=== PATIENT | female | born 1965 | race Caucasian/White ===

== ENCOUNTER 2024-04-05 12:00 | Inpatient (IN) | payer BC ==
[2024-04-05] VITALS (10 sets, daily range): BP systolic 105–126; BP diastolic 50–79; PULSE 84–94; TEMP 97.5–99.9
[~2024-04-05] VITALS: Ht 170.2 cm; Wt 148.2 kg
[2024-04-05] MEDS ORDERED: Ketorolac 15 MG/ML VIAL IV SCH (12:24)
[2024-04-05] MEDS ORDERED: cefTRIAXone 1 G in Water For Injection,Sterile 10 ML IV ONE (12:30)
[2024-04-05] MEDS ORDERED: Ondansetron 4 MG/2 ML VIAL IV PRN ×3 (12:30→19:45)
[2024-04-05] MEDS ORDERED: NS 1,000 ML IV SCH (12:30)
[2024-04-05] MEDS ORDERED: Morphine 4 MG/ML VIAL IV PRN (12:30)
[2024-04-05] MEDS ORDERED: WELLBUTRIN SR150 M1 PO (13:10)
[2024-04-05] MEDS ORDERED: VRAYLAR1.5 MG PO (13:10)
[2024-04-05] MEDS ORDERED: CELEXA40 MG PO (13:11)
[2024-04-05] MEDS ORDERED: KLOR-CON SPRIN10 MEQ PO (13:11)
[2024-04-05] MEDS ORDERED: SINGULAIR 110 MG/TAB PO (13:12)
[2024-04-05] MEDS ORDERED: PROTONIX 40MG T40 MG PO (13:12)
[2024-04-05] MEDS ORDERED: HCTZ 25MG TAB25 MG PO (13:13)
[2024-04-05] MEDS ORDERED: OZEMPIC0.25 MG/02 SQ (13:13)
[2024-04-05] MEDS ORDERED: COZAAR 50MG50 MG/TAB PO (13:14)
[2024-04-05] MEDS ORDERED: ZYRTEC 10MG10 MG PO (13:15)
[2024-04-05] MEDS ORDERED: PROAIR HFA0.09 MG/AC IH (13:15)
--- NOTE | 2024-04-05 14:06 | NUR ---
Initial visit; Patient thanked Construction Tech for looking in on her and asking her how she is doing. Padma says she is doing ok and really has no spiritual requests but would like to be in Construction Tech's prayers for healing.
--- NOTE | 2024-04-05 14:52 | NUR ---
SW met with patient to complete initial assessment for discharge planning. Patient verified she lives alone in [place], sees ANNA Garcia as her PCP and uses [facility]. Patient uses a CPAP and bed rail to assist with turning in bed. Patient lists her daughter January Shilo ([phone]) as her DPOA and states her DPOA paperwork and Living Will are on file at [facility]. Patient reports being independent with ADLs and plans to return home at discharge. Left message for Ronel in Medical Records at [facility] to request copy of Advaned Directives. Discharge Plan: Home
--- NOTE | 2024-04-05 15:47 | NUR ---
SW received call from Medical Records at [facility]. She stated that she does not find a copy of Advanced Directives on file for patient. SW called patient's daughter January ([phone]) to inquire if she may have a copy of Advanced Directives due to being named as patient's DPOA. She states she lives out of state and does not have a copy. She is visiting patient at this time and states that patient has copy of AD in a safe at her home. Daughter encouraged to bring copy to hospital for patient's chart if she is able to locate it. Daughter agreeable. Discharge Plan: Home
[2024-04-05] MEDS ORDERED: B COMPLEX #11 TA1 PO (16:11)
[2024-04-05] MEDS ORDERED: Lidocaine PF 2% (20 MG/ML) 5 ML VIAL ONE (16:19)
[2024-04-05] MEDS ORDERED: Succinylcholine PF 200 MG/10 ML SYRINGE IV ONE (16:19)
[2024-04-05] MEDS ORDERED: fentaNYL 50 MCG/ML 2 ML VIAL ONE (16:19)
--- NOTE | 2024-04-05 16:45 | NUR ---
Pt. to OR at this time.
[2024-04-05] MEDS ORDERED: Iohexol 300 - 10 ML VIAL URETER -L ONE (17:16)
[2024-04-05] MEDS ORDERED: Lidocaine 2% (20 MG/ML) 20 ML UROJET UR ONE (17:43)
[2024-04-05] MEDS ORDERED: dexAMETHasone 10 MG/ML VIAL ONE (17:57)
[2024-04-05] MEDS ORDERED: Ondansetron 4 MG/2 ML VIAL ONE (17:57)
[2024-04-05] MEDS ORDERED: NS 10 ML IV ONE (17:57)
[2024-04-05] MEDS ORDERED: Cetirizine 10 MG TAB PO PRN (18:00)
[2024-04-05] MEDS ORDERED: HYDROmorphone 1 MG/1 ML SYRINGE [PACU/SDC ONLY] IV PRN (18:30)
[2024-04-05] MEDS ORDERED: Albuterol 0.042% Neb Soln 1.25 MG/3 ML UD IH PRN (18:30)
[2024-04-05] MEDS ORDERED: fentaNYL 50 MCG/ML 1 ML SYRINGE/VIAL [PACU/SDC ONLY] IV PRN (18:30)
--- NOTE | 2024-04-05 18:43 | NUR ---
Pt. to the floor from PACU. Pt. is A&OX3, assessment wnl. Pt. denies pain. Call light within reach.
[2024-04-05] MEDS ORDERED: Montelukast 10 MG TAB PO SCH (21:00)
--- NOTE | 2024-04-05 21:56 | NUR ---
PATIENT ALERT AND ORIENTED X4. VSS. PATIENT HERE FOR CYSTO, RPG, LEFT STENT PLACEMENT. PATIENT DENIES ANY PAIN AT THIS TIME. PATIENT TOLERATING PO, VOIDING AND SITTING IN BED EATING DINNER. IV TO RIGHT FA WITH POST OP FLUIDS FINISHING. PM MEDS ADMINISTERED. NO FURTHER NEEDS. CALL LIGHT IN REACH.
[2024-04-06] VITALS (17 sets, daily range): BP systolic 95–127; BP diastolic 36–69; PULSE 66–106; TEMP 98.2–102.8
[2024-04-06] MEDS ORDERED: Dextrose (Glucose) 15 GM (4 x 3.75 GM) Chewable TABLET PACK PO PRN (09:00)
[2024-04-06] MEDS ORDERED: Dextrose 50% Water 25 GM/50 ML SYRINGE IV PRN (09:00)
[2024-04-06] MEDS ORDERED: buPROPion SR (12-HR) 150 MG TAB PO SCH (09:00)
[2024-04-06] MEDS ORDERED: cefTRIAXone 2 G in Water For Injection,Sterile 20 ML IV SCH (09:00)
[2024-04-06] MEDS ORDERED: Glucagon 1 MG VIAL IM PRN (09:00)
[2024-04-06] MEDS ORDERED: Insulin Lispro (HumaLOG) SQ SCH (09:00)
[2024-04-06] MEDS ORDERED: Citalopram 20 MG TAB PO SCH (09:00)
[2024-04-06] MEDS ORDERED: hydroCHLOROthiazide 25 MG TAB PO SCH (09:00)
[2024-04-06] MEDS ORDERED: Losartan 50 MG TAB PO SCH (09:00)
--- NOTE | 2024-04-06 09:41 | NUR ---
PT RESTING IN BED, ALERT AND ORIENTEDX4. RATES PAIN 3/10. GAVE PAIN PILL. PT RATED PAIN 0/10 AFTER PAIN PILL. ASSESSED AND GAVE MORNING MEDS. PT BLOOD SUGAR WAS [address] HOWELL AND LET HIM KNOW. GOT INSULIN ORDERS. DR AVILES SAID "IF BLOOD SUGAR IS OKAY AT THE NEXT CHECK SHE CAN GO HOME". NO OTHER COMPLAINS AT THIS TIME FROM PT. CALL LIGHT WITHIN REACH.
--- NOTE | 2024-04-06 13:21 | NUR ---
PT BLOOD SUGAR AT [address] AVILES TO SEE IF HE WAS OKAY WITH HER GOING HOME. ALSO NOTIFIED HIM OF TEMP OF 100.0. HE SAID TO GIVE PT NOON DOSE OF INSULIN AND IF HER BLOOD SUGAR GETS DOWN TO 250 SHE CAN GO HOME. ALSO GOT ORDERS TO CALL PT PHARMACY AND CALL IN ANTIBIOTIC FOR PT.
--- NOTE | 2024-04-06 18:12 | NUR ---
PT 1630 BLOOD SUGAR WAS 309. [address] STAPLES TO SEE IF HE STILL WANTED TO SEND PT HOME OR CONSULT HOSPITALIST. HE DID NOT ANSWER. LEFT VOICEMAIL AT 1630. LEFT NAME AND NUMBER. HAVE NOT GOT A CALL BACK YET.
--- NOTE | 2024-04-06 18:45 | NUR ---
REPORT RECEIVED FROM JESSICA CORCORAN. REPORTED THAT PATIENT'S BLOOD GLUCOSE LEVELS HAD NOT BEEN STABILIZED DESPITE INSULIN ADMINISTRATION. RN HAD NOT RECEIVED CALL BACK FROM DR STAPLES FOR NEW ORDERS OR TO OBTAIN A HOSPITALIST CONSULT.
--- NOTE | 2024-04-06 19:00 | NUR ---
THIS NURSE RECEIVED CALL FROM DR STAPLES. THIS NURSE NOTIFIED HIM THAT PATIENT'S BLOOD GLUCOSE LEVELS STILL REMAINED ELEVATED. PATIENT WAS AFEBRILE AT THIS TIME.
--- NOTE | 2024-04-06 19:20 | NUR ---
THIS NURSE CALLED ANNA PERALTA FOR HOSPITALIST CONSULT. AWAITING NEW ORDERS
--- NOTE | 2024-04-06 19:45 | NUR ---
PATIENT ALERT AND ORIENTED. APPEARS TO BE DYSPNEIC AT REST. VS WERE FOLLOWS BP 111/36, PULSE 98, RR 20, SPO2 92% ON RA, AND TEMP 102.2. PATIENT APPEARS DIAPHORETIC AND IS WARM TO THE TOUCH. PATIENT ALSO HAD INCONTINENT EPISODE. FABIAN CASTILLO AT BEDSIDE. SEE NEW ORDERS
[2024-04-06] MEDS ORDERED: NS 1,000 ML IV ONE (20:00)
[2024-04-06] MEDS ORDERED: NS 1,000 ML IV SCH (20:00)
--- NOTE | 2024-04-06 20:00 | NUR ---
CALLED LAB FOR STAT LABS.
[2024-04-06 20:49] LABS: ARTERIAL BLD GAS O2 SATURATION 98.5 % (92-100); ARTERIAL BLD GAS TCO2 CT 21.2; ARTERIAL BLOOD GAS BASE EXCESS -0.1 (-2-2); ARTERIAL BLOOD GAS HCO3 20.4 meq/L (22-26); ARTERIAL BLOOD GAS PO2 102.6 mmHg (80-100); ARTERIAL BLOOD GAS pH 7.55 (7.35-7.45)
[2024-04-06 20:50] LABS: ARTERIAL BLOOD GAS PCO2 23.9 mmHg (35-45)
[2024-04-06 20:54] LABS: BASO % 0.4 % (0.0-2.0); GRAN # 7.8 K/mm3 (1.4-6.5); GRAN % 82.4 % (42.2-75.2); HEMATOCRIT 39.2 % (37.0-47.0); HEMOGLOBIN 13.4 g/dl (12.5-16.0); LYMPH # 0.7 K/mm3 (1.2-3.4); LYMPH % 7.1 % (20.0-51.0); MEAN CELL VOLUME 83 fl (80.0-100.0); MEAN CORPUSCULAR HEMOGLOBIN 28 pg (27-31); MEAN CORPUSCULAR HGB CONC 34 g/dl (33.0-37.0); MEAN PLATELET VOLUME 10.4 fl (7.4-10.4); MONO # 0.9 K/mm3 (0.1-0.6); MONO % 9.4 % (1.7-9.3); PLATELET COUNT 125 K/mm3 (130-400); RED BLOOD COUNT 4.74 M/mm3 (4.10-5.30); REDCELL DISTRIBUTION WIDTH-CV 14.2 % (11.5-14.5)
[2024-04-06 21:00] LABS: ACETONE,SERUM NEGATIVE
[2024-04-06] MEDS ORDERED: Acetaminophen 325 MG TAB PO PRN (21:00)
[2024-04-06 21:09] LABS: ALANINE AMINOTRANSFERASE 30 U/L (0-55); ALBUMIN 2.9 g/dL (3.4-4.8); ALKALINE PHOSPHATASE 64 U/L (40-150); ANION GAP 10 mmol/L (7-16); AST,SGOT 20 U/L (5-34); BILIRUBIN,TOTAL 0.7 mg/dL (0.2-1.2); CALCIUM 9.3 mg/dL (8.4-10.2); CHLORIDE 98 mEq/L (98-107); CREATININE, serum 1.42 mg/dL (0.57-1.11); GLUCOSE 350 mg/dL (70-99); POTASSIUM 4.3 mEq/L (3.5-4.5); SODIUM 130 mEq/L (136-145); TOTAL PROTEIN 6.5 g/dl (6.2-8.1)
[2024-04-06 21:16] LABS: BLOOD UREA NITROGEN 17 mg/dL (10-20)
[2024-04-06 22:11] LABS: COLLECTION METHOD CLEAN CATCH
[2024-04-06] MEDS ORDERED: Ibuprofen 400 MG TAB PO ONE (22:15)
[2024-04-06 22:28] LABS: PH 5.5 (5.0-8.5); URINE APPEARANCE CLOUDY (CLEAR/HAZY); URINE BLOOD 3+ (NEGATIVE); URINE COLOR Dark Yellow (YELLOW); URINE GLUCOSE 3+ (NEGATIVE); URINE KETONE 1+ (NEGATIVE); URINE NITRATE NEGATIVE (NEGATIVE); URINE PROTEIN(semi-quant) 2+ (NEGATIVE)
[2024-04-06] MEDS ORDERED: Insulin Glargine-ygfn (Lantus) SQ SCH (22:30)
[2024-04-06 22:47] LABS: URINE BACTERIA MODERATE /hpf (NONE SEEN); URINE RBC >50 /hpf (0-2); URINE WBC 20-50 /hpf (0-2)
[2024-04-07] VITALS (23 sets, daily range): BP systolic 96–131; BP diastolic 49–86; PULSE 76–93; TEMP 97.3–99
[2024-04-07] MEDS ORDERED: Insulin Lispro (HumaLOG) SQ SCH
--- NOTE | 2024-04-07 02:32 | NUR ---
PATIENT RESTING IN BED. ALERT AND ORIENTED. DAUGHTER AT BESIDE. VSS. IV FLUIDS INFUSING PER MAR. PATIENT IS AFEBRILE, AND APPEARS MORE COMFORTABLE. CPAP IN PLACE. THIS NURSE ASSISTED PATIENT WITH AMBULATING TO RESTROOM. STEADY GAIT. PATIENT BACK TO BED. DENIES PAIN OR DISCOMFORT. CALL LIGHT WITHIN REACH.
[2024-04-07 06:37] LABS: BASO % 0.5 % (0.0-2.0); EOS % 0.1 % (0.0-4.0); GRAN % 80.6 % (42.2-75.2); HEMATOCRIT 38.8 % (37.0-47.0); LYMPH # 0.7 K/mm3 (1.2-3.4); LYMPH % 9.4 % (20.0-51.0); MEAN CELL VOLUME 84 fl (80.0-100.0); MEAN CORPUSCULAR HEMOGLOBIN 28 pg (27-31); MEAN CORPUSCULAR HGB CONC 34 g/dl (33.0-37.0); MEAN PLATELET VOLUME 10.1 fl (7.4-10.4); MONO # 0.6 K/mm3 (0.1-0.6); MONO % 8.3 % (1.7-9.3); PLATELET COUNT 112 K/mm3 (130-400); RED BLOOD COUNT 4.62 M/mm3 (4.10-5.30); REDCELL DISTRIBUTION WIDTH-CV 14.4 % (11.5-14.5)
[2024-04-07 06:56] LABS: ALBUMIN 2.6 g/dL (3.4-4.8); BILIRUBIN,TOTAL 0.5 mg/dL (0.2-1.2); CREATININE, serum 1.06 mg/dL (0.57-1.11); POTASSIUM 3.5 mEq/L (3.5-4.5)
[2024-04-07] MEDS ORDERED: Insulin Glargine-ygfn (Lantus) SQ ONE (11:30)
--- NOTE | 2024-04-07 12:22 | NUR ---
PT HAS BEEN RESTING IN BED, ALERT AND ORIENTEDX4. PT HAS HAD NAUSEA AND VOMIITING THIS MORNING. GAVE ZOFRAN. TEMPS HAVE BEEN AFIBRILE. RATES ABDOMINAL PAIN 3/10 AND ALSO COMPLAINS OF HEADACHE. OTHER VITALS HAVE BEEN STABLE. ASSESSED AND GAVE MORNING MEDS. NO OTHER COMPLAINTS AT THIS TIME. CALL LIGHT WITHIN REACH.
[2024-04-07] MEDS ORDERED: Insulin Lispro (HumaLOG) SQ ONE (16:45)
[2024-04-07] MEDS ORDERED: NS & 40 mEq KCl 1,000 ML IV SCH (17:00)
--- NOTE | 2024-04-07 20:00 | NUR ---
Assessment complete. A&Ox3. Denies shortness of breath. Rating pain 4/10-c/o headache. Has already received tylenol-requested norco-given at this time. Also c/o nausea-zofran was given already. NS with 20KCL infusing to right forearm without difficulty. Daughter is at bedside. Plan of care discussed for this shift to include meds/pain control/blood sugars/calling for questions/concerns. Verbalizes understanding. Call light in reach. Will monitor.
[2024-04-07] MEDS ORDERED: Insulin Glargine-ygfn (Lantus) SQ SCH (21:00)
--- NOTE | 2024-04-07 21:00 | NUR ---
Patient states headache is better. States the nausea has passed. Denies current questions/concerns. Will monitor.
[2024-04-08] VITALS (11 sets, daily range): BP systolic 103–130; BP diastolic 48–77; PULSE 70–82; TEMP 97.4–98.9
[2024-04-08 07:07] LABS: ALBUMIN 2.4 g/dL (3.4-4.8); BILIRUBIN,TOTAL 0.5 mg/dL (0.2-1.2); CALCIUM 7.9 mg/dL (8.4-10.2); CREATININE, serum 0.8 mg/dL (0.57-1.11); POTASSIUM 3.8 mEq/L (3.5-4.5); TOTAL PROTEIN 5.8 g/dl (6.2-8.1)
[2024-04-08 07:35] LABS: BASO % 0.3 % (0.0-2.0); EOS # 0.1 K/mm3 (0.0-0.7); EOS % 0.9 % (0.0-4.0); GRAN # 4.1 K/mm3 (1.4-6.5); GRAN % 70.8 % (42.2-75.2); HEMATOCRIT 37.5 % (37.0-47.0); HEMOGLOBIN 12.6 g/dl (12.5-16.0); LYMPH # 0.9 K/mm3 (1.2-3.4); LYMPH % 14.8 % (20.0-51.0); MEAN CELL VOLUME 83 fl (80.0-100.0); MEAN CORPUSCULAR HEMOGLOBIN 28 pg (27-31); MEAN CORPUSCULAR HGB CONC 34 g/dl (33.0-37.0); MEAN PLATELET VOLUME 10.7 fl (7.4-10.4); MONO # 0.7 K/mm3 (0.1-0.6); MONO % 12.5 % (1.7-9.3); PLATELET COUNT 72 K/mm3 (130-400); RED BLOOD COUNT 4.52 M/mm3 (4.10-5.30); REDCELL DISTRIBUTION WIDTH-CV 14.2 % (11.5-14.5)
--- NOTE | 2024-04-08 08:00 | NUR ---
PATIENT IS ORIENTED BUT DROWSY. PATIENT HAS BEEN C/O WELLS WITH SOME NAUSEA, NO EMESIS, SINCE SURGERY. GAVE PRN IV ZOFRAN & TYLENOL WITH AM MEDS. AM BS WAS 215. PATIENT'S A1C WAS OVER 11 AND PATIENT DISPLAYS SOME SYMPTOMS OF HYPOGLYCEMIA IN THE LOW 200'S. ADA DIET ORDERED. IV FLUIDS INFUSING VIA PUMP INTO RIGHT FORARM IV. HEAD TO TOE ASSESSMENT COMPLETE. SCD'S TO BLE. NO OTHER NEEDS AT THIS TIME. CALL LIGHT IN REACH.
[2024-04-08] MEDS ORDERED: Insulin Glargine-ygfn (Lantus) SQ ONE (11:30)
[2024-04-08] MEDS ORDERED: Ketorolac 15 MG/ML VIAL IV SCH (11:30)
--- NOTE | 2024-04-08 11:45 | NUR ---
PATIENT STILL C/O WELLS, SEE NEW ORDERS FROM HOSPITALIST.
[2024-04-08] MEDS ORDERED: Meropenem 500 MG in Water For Injection,Sterile 10 ML IV SCH (18:15)
--- NOTE | 2024-04-08 20:00 | NUR ---
Assessment complete. A&Ox3. Denies nausea/shortness of breath. C/O headache-tylenol given per dr order. VS have remained stable-afebrile. NS with 40meq @100ml/hr infusing without difficulty. Blood sugars Q4H. Currently on contact for ESBL in urine. Plan of care discussed for this shift to include meds/pain control/calling for questions/concerns. Call light in reach. Will monitor.
[2024-04-08] MEDS ORDERED: Insulin Glargine-ygfn (Lantus) SQ SCH (21:00)
[2024-04-09] VITALS (13 sets, daily range): BP systolic 119–130; BP diastolic 47–77; PULSE 73–86; TEMP 97.7–98.6
--- NOTE | 2024-04-09 06:07 | NUR ---
Patient had an uneventful night. VS remained stable. Afebrile. INT to right AC flushes without difficulty-NS with 40 KCL infusing without difficulty. Received tylenol over night for headache. Has used bedside commode due to not being able to make it to the bathroom without incontinence. Stsates she is feeling better today. Denies current needs. Call light in reach. Will monitor.
[2024-04-09 06:50] LABS: BASO % 0.4 % (0.0-2.0); EOS # 0.1 K/mm3 (0.0-0.7); EOS % 1.8 % (0.0-4.0); GRAN # 4.8 K/mm3 (1.4-6.5); HEMATOCRIT 38.4 % (37.0-47.0); HEMOGLOBIN 12.7 g/dl (12.5-16.0); LYMPH # 1.2 K/mm3 (1.2-3.4); LYMPH % 17.5 % (20.0-51.0); MEAN CELL VOLUME 84 fl (80.0-100.0); MEAN CORPUSCULAR HEMOGLOBIN 28 pg (27-31); MEAN CORPUSCULAR HGB CONC 33 g/dl (33.0-37.0); MONO # 0.8 K/mm3 (0.1-0.6); MONO % 11.4 % (1.7-9.3); PLATELET COUNT 71 K/mm3 (130-400); RED BLOOD COUNT 4.58 M/mm3 (4.10-5.30); REDCELL DISTRIBUTION WIDTH-CV 14.2 % (11.5-14.5)
--- NOTE | 2024-04-09 07:16 | NUR ---
Bedside report received from JEWELL Barker. Pt resting in bed with no complaints. Call light within reach.
[2024-04-09 07:44] LABS: ALBUMIN 2.3 g/dL (3.4-4.8); BILIRUBIN,TOTAL 0.4 mg/dL (0.2-1.2); CALCIUM 8.7 mg/dL (8.4-10.2); CREATININE, serum 0.75 mg/dL (0.57-1.11); POTASSIUM 3.9 mEq/L (3.5-4.5); TOTAL PROTEIN 5.8 g/dl (6.2-8.1)
--- NOTE | 2024-04-09 08:38 | NUR ---
Pt awake in recliner eating breakfast. Shift assessment completed. Pt A&O x4. Pt has complaints of pain in lower back rating 3/10. IVF infusing into LAC with no complications. Pt has no other request at this time. Contact precautions in place. Call light within reach.
[2024-04-09] MEDS ORDERED: Insulin Glargine-ygfn (Lantus) SQ ONE (09:30)
[2024-04-09] MEDS ORDERED: Insulin Lispro (HumaLOG) SQ SCH ×2 (12:00→17:00)
--- NOTE | 2024-04-09 13:54 | NUR ---
Pt completed shower independently with no complications.
[2024-04-09 14:26] LABS: COLLECTION METHOD CLEAN CATCH
[2024-04-09 14:39] LABS: PH 5.5 (5.0-8.5); URINE APPEARANCE CLEAR (CLEAR/HAZY); URINE BLOOD 2+ (NEGATIVE); URINE COLOR YELLOW (YELLOW); URINE GLUCOSE 2+ (NEGATIVE); URINE KETONE 1+ (NEGATIVE); URINE NITRATE NEGATIVE (NEGATIVE); URINE PROTEIN(semi-quant) NEGATIVE (NEGATIVE)
[2024-04-09] MEDS ORDERED: Insulin Glargine-ygfn (Lantus) SQ SCH (21:00)
--- NOTE | 2024-04-09 21:39 | NUR ---
Patient assessed at this time, see shift assessment, sitting up on a chair watching tv, reports back pain, tylenol given per request, still with INT to right antecubital, denies further needs, call light and personal items within reach, will continue to monitor.
[2024-04-10] VITALS (13 sets, daily range): BP systolic 111–149; BP diastolic 50–80; PULSE 70–82; TEMP 98.3–100.1
--- NOTE | 2024-04-10 09:00 | NUR ---
Pt doing okay this morning. She is having complaints of a headache, states she has had it for past couple days. Tylenol helping some. Pt is currently sitting up in the chair, she has had breakfast with no complaints. PT getting up independently in her room. Discussed with her about incentive spirometer, will discuss with dr to see about getting one ordered. No other needs at this time, call light within reach
[2024-04-10] MEDS ORDERED: Insulin Lispro (HumaLOG) SQ SCH (12:00)
--- NOTE | 2024-04-10 13:00 | NUR ---
Talked to Dr about getting IS for pt, they agreed. Called RT and notified of order for IS. Pt states that she still has a headache, but it is not too bad. pt continues to sit up in the chair. She is drowsy
--- NOTE | 2024-04-10 16:27 | NUR ---
No IS in room at this time. Grabbed IS and educated pt on use. Pt did well and was able to do it correctly. Linens changed at this time. Pt reports headache getting a little worse, PRN tylenol given. Pts daughter just arrived
--- NOTE | 2024-04-10 21:00 | NUR ---
Assessment complete. A&Ox3. Sitting up in chair watching TV. Denies nausea/shortness of breath. Rating pain 6/10 on pain scale-c/o headache-tylenol given per dr order. States is voiding well-urine not seen at this time. INT to right AC flushes without difficulty. Plan of care discussed for this shift to include meds/pain control/calling for questions/concerns. Verbalizes understanding. Call light in reach. Will monitor.
--- NOTE | 2024-04-10 23:57 | NUR ---
Patient laying in bed awake. Denies pain/nausea/shortness of breath. VS stable. IV antibiotics give without difficulty to right AC INT. Denies current questions/concerns. Call light in reach. Will monitor.
[2024-04-11] VITALS (12 sets, daily range): BP systolic 114–134; BP diastolic 52–67; PULSE 70–79; TEMP 97.8–98.5
--- NOTE | 2024-04-11 05:38 | NUR ---
Patient rested more this shift than last. Denies nausea/shortness of breath. Did c/o headache several times-tylenol given per dr order with good control. INT to right AC flushes well with no s/s of infiltration noted. Tylenol given this AM for dull headache-rated 4/10 on pain scale. Denies current questions/concerns. Call light in reach. Will monitor.
--- NOTE | 2024-04-11 06:51 | NUR ---
Bedside report given to JEWELL Payne
--- NOTE | 2024-04-11 07:05 | NUR ---
Pt resting in bed. Denies needs at the moment. Call light in reach.
[2024-04-11 07:22] LABS: HEMOGLOBIN 12.3 g/dl (12.5-16.0); MEAN CELL VOLUME 85 fl (80.0-100.0); MEAN CORPUSCULAR HEMOGLOBIN 29 pg (27-31); MEAN CORPUSCULAR HGB CONC 34 g/dl (33.0-37.0); MEAN PLATELET VOLUME 9.5 fl (7.4-10.4); PLATELET COUNT 148 K/mm3 (130-400); RED BLOOD COUNT 4.32 M/mm3 (4.10-5.30); REDCELL DISTRIBUTION WIDTH-CV 14.8 % (11.5-14.5)
[2024-04-11 07:24] LABS: HEMATOCRIT 36.7 % (37.0-47.0)
[2024-04-11 07:48] LABS: CREATININE, serum 0.7 mg/dL (0.57-1.11); MAGNESIUM 1.9 mg/dL (1.6-2.6); POTASSIUM 3.6 mEq/L (3.5-4.5)
[2024-04-11 08:15] LABS: BAND 1 % (0-10); EOSINOPHIL 2 % (0-4); METAMYELOCYTE 1 % (0-0); NEUTROPHILS 52 % (42.0-75.2)
[2024-04-11 08:16] LABS: ANISOCYTOSIS 1+; LYMPHOCYTE 32 % (20.0-51.0); PLATELET ESTIMATE NORMAL (NORMAL)
--- NOTE | 2024-04-11 09:00 | NUR ---
Pt sitting up in chair. PCT unable to get accurate BG at this time due to Pt eating entire breakfast prior to PCT being in room. Asked PCT to obtain BG around 0915 as Pt completed breakfast at 0845. Pt is A&Ox4. VSS. S1S2. Clear lungs on RA. ABD is round, soft, non-tender with audible bowel sounds. Palpable pulses in all extremities with 4/5 strength. Pt reporting headache with pain 3/10. Pt reports achy feeling over L kidney on back. Pt requested Tylenol for pain. Pt denies n/v, dizziness. Pt reports feeling mildly sweaty. No further needs at this time. Call light in reach.
--- NOTE | 2024-04-11 09:40 | NUR ---
SW attended cinical rounds. Patient stable for discharge to home with IV antibiotics needed for 5 days. Patient to get midline access today. Discussed option of [facility] infusion clinic due to dosing of medication being once a day. Attending agreeable. SW spoke with patient who is also agreeable. SW called [facility] infusion clinic. They asked for med order to be faxed to ensure they have medication available. Discharge plan: Home with IV abx
[2024-04-11] MEDS ORDERED: LANTUS SOLOS100 U/ML SQ (09:42)
[2024-04-11] MEDS ORDERED: INVANZ INJ1 G/VIAL IV (09:42)
--- NOTE | 2024-04-11 15:02 | NUR ---
ALEXANDRA received call from Cary at [facility] stating that they need to have prior auth for medication prior to being able to provide. Cary stated that this hospital has to provide prior auth for medication. ALEXANDRA was then informed by TREVA Ferguson that the administering facility usually obtains authorization. ALEXANDRA spoke with Laila at [facility] office and provided prescription, clinical notes and demographic information for patient for them to submit for authorization. Discharge plan: home with IV antibiotics
--- NOTE | 2024-04-11 15:21 | NUR ---
This RN talked with SW, IV ABX is not ready through insurance yet. Called Dr Mendez to let him know. Left message on voicemail. Pt aware waiting on insurance.
--- NOTE | 2024-04-11 20:00 | NUR ---
Assessment complete. A&Ox3. Denies nausea/shortness of breath. Rating pain 4/30-cywzepac-wgqyxlb given per dr order. Blood sugar is 105-long acting given per dr order with a snack with instruction to call with s/s of low blood sugar. Verbalizes understanding. PICC to right upper arm flushes without difficulty-good blood return. Plan of care discussed for this shift to include meds/pain control/antibiotics/calling for questions/concerns. Verbalizes understanding. Call light in reach. Will monitor.
[2024-04-11] MEDS ORDERED: Insulin Glargine-ygfn (Lantus) SQ SCH (21:00)
[2024-04-11] MEDS ORDERED: Insulin Lispro (HumaLOG) SQ SCH (21:00)
--- NOTE | 2024-04-11 23:49 | NUR ---
Patient resting in bed. Denies pain/nausea/shortness of breath. VS stable. Antibiotics given in right upper arm PICC. Flushes well/good blood return. VS remained stable. Denies current questions/concerns. Call light in reach. Will monitor.
[2024-04-12 03:00] VITALS: BP 138/77; PULSE 77; TEMP 98
[2024-04-12 04:08] VITALS: BP_SYST 138
--- NOTE | 2024-04-12 06:10 | NUR ---
Patient had an uneventful night. Did receive tylenol for headache x2. PICC to right upper arm flushes without difficulty with good blood return. VS remained stable. States she is ready to go home. Denies current questions/concerns. Call light in reach. Will monitor.
[2024-04-12 07:26] VITALS: BP 139/77; PULSE 83; TEMP 98.2
[2024-04-12 09:00] VITALS: BP_SYST 139
--- NOTE | 2024-04-12 09:16 | NUR ---
PATIENT ASSESSMENT COMPLETE. PATIENT RESTING IN BED, STATES SHE DIDNT GET MUCH SLEEP LAST NIGHT AND IS FEELING SLEEPY THIS MORNING. ALL MORNING MEDS GIVEN PER ORDERS. PATIENTS GLUCOSE WAS 51 THIS AM AND THEN 73 AFTER BREAKFAST FOR RECHECK, HELP ALL INSULIN TILL HOSPITALIST SEES PATIENT. PATIENT HAS NO OTHER COMPLAINTS OR REQUEST AT THIS TIME. CALL LIGHT IN REACH.
--- NOTE | 2024-04-12 10:27 | NUR ---
SW received call from Mercedez with [facility] in [place] stating they have prior authorization for IV medication. SW attended clinical rounds and patient is stable for discharge. Per pharmacy, patient will receive medication today prior to discharge and will start at Infusion clinic tomorrow. Discharge orders will be faxed to infusion clinic when completed. Attending notified patient of discharge during rounds. Discharge plan: Home with IV abx
[2024-04-12 11:08] VITALS: BP 126/61; PULSE 67; TEMP 98
[2024-04-12 12:00] VITALS: BP_SYST 126
--- NOTE | 2024-04-12 12:46 | NUR ---
ALEXANDRA faxed discharge orders and med list to Cary at [facility]. Called and spoke with Cary to notify of discharge orders and faxed clinicals. Cary stated she would call patient and schedule time for her arrive at their hospital. Discharge plan: Home with IV abx
--- NOTE | 2024-04-12 14:32 | NUR ---
PATIENT DISCHARGED, ALL QUESTIONS ANSWERED, PATIENT WHEELED OUT BY SIGNALING DESIGN ENGINEER IN WHEELCHAIR WITH DAUGHTER AT SIDE.
[2024-04-12] MEDS ORDERED: Insulin Glargine-ygfn (Lantus) SQ SCH (21:00)
== END 2024-04-12 14:43 | disposition home or self-care (01) | DRG 854 ==
LOC: SURG 12:00 → MEDICAL 04-08 11:19 → SURG 04-08 11:19 → MEDICAL 04-08 11:29 → SURG 04-08 11:29
PROVIDERS: Internal Medicine; Nurse Practitioner Family; ADMIT Urology
PROC: 0T778DZ Dilation of Left Ureter with Intraluminal Device, Via Natural or Artificial Opening Endoscopic (ICD-10-PCS; principal; 2024-04-05 13:45)
PROC: BT1F1ZZ Fluoroscopy of Left Kidney, Ureter and Bladder using Low Osmolar Contrast (ICD-10-PCS; 2024-04-05 13:45)
PROC: 02HV33Z Insertion of Infusion Device into Superior Vena Cava, Percutaneous Approach (ICD-10-PCS; 2024-04-11)
DX: A41.9 Sepsis, unspecified organism (principal); E87.20 Acidosis, unspecified; N17.9 Acute kidney failure, unspecified; Z16.12 Extended spectrum beta lactamase (ESBL) resistance; Z68.43 Body mass index [BMI] 50.0-59.9, adult; Z16.23 Resistance to quinolones and fluoroquinolones; N13.6 Pyonephrosis; G47.33 Obstructive sleep apnea (adult) (pediatric); K21.9 Gastro-esophageal reflux disease without esophagitis; F32.A Depression, unspecified; Z66 Do not resuscitate; F41.9 Anxiety disorder, unspecified; B96.29 Other Escherichia coli [E. coli] as the cause of diseases classified elsewhere; E11.649 Type 2 diabetes mellitus with hypoglycemia without coma; I10 Essential (primary) hypertension; E66.01 Morbid (severe) obesity due to excess calories; E11.65 Type 2 diabetes mellitus with hyperglycemia; Z79.899 Other long term (current) drug therapy; Z88.8 Allergy status to other drugs, medicaments and biological substances; Z90.49 Acquired absence of other specified parts of digestive tract; Z99.89 Dependence on other enabling machines and devices; Z23 Encounter for immunization
CPT/HCPCS: C1751; C1769; C2617; G0378; J0690; J0696; J1100; J1335; J1815; J1885; J2185; J2405; J2543; J2704; J3010; J3480; J7030; Q3014; Q9967